=== PATIENT | female | born 1970 | race Asian ===

== ENCOUNTER 2017-11-11 13:04 | Outpatient (CLI) | payer OTHER ==
--- NOTE | 2017-11-11 14:14 | ULT ---
ULTRASOUND RETROPERITONEUM COMPLETE: (RENAL) 11/11/2017 HISTORY: A 47-year-old female with urinary tract infection. FINDINGS: The right kidney measures 10.5 x 3.5 x 3.5 cm. The left kidney measures 10 x 5.5 x 5.5 cm. No hydronephrosis bilaterally. There is an approximately 1.2 x 0.5 cm hyperechoic structure without definite shadowing at the lower pole of the left kidney. This is probably a calculus. Prior to voiding, the urinary bladder volume is 95 mL. Post void residua is 15 mL. The bladder adamson are diffusely mildly, heterogeneously thickened and irregular. IMPRESSION: 1. Incomplete micturition. 2. Abnormal appearance of bladder adamson, suggestive of cystitis, either acute or chronic. 3. Probable left renal lower pole calculus. Confirmation with noncontrast CT should be considered. 4. No hydronephrosis. AALIYAH Hernandez POS: LUIZ
== END 2017-11-11 13:05 | disposition home or self-care (01) ==
LOC: SCSULT 13:04
PROVIDERS: ATTEND Urology
DX: R35.0 Frequency of micturition (principal); R33.9 Retention of urine, unspecified; R93.41 Abnormal radiologic findings on diagnostic imaging of renal pelvis, ureter, or bladder
CPT/HCPCS: 76770

== ENCOUNTER 2018-01-06 15:50 | Outpatient (CLI) | payer OTHER ==
[2018-01-06 16:55] LABS: Hemoglobin 14.1 g/dL (12.0-16.0); Mean Corpuscular HGB CONC 32.3 g/dL (32.0-36.0); Mean Corpuscular Hemoglobin 29.2 pg (27.0-31.0); Mean Corpuscular Volume 90.4 fL (78.0-98.0); Mean Platelet Volume 7.6 fL (7.4-10.4); Platelet Count 263 thou/uL (130-400); Red Blood Cell (RBC) Count 4.84 mill/uL (4.20-5.40); White Blood Cell (WBC) Count 7.1 thou/uL (4.8-10.8)
[2018-01-06 16:58] LABS: BHCG - Serum Negative (NEGATIVE); Pregs Control Background? CLEAR/WHITE (CLR/WHITE); Pregs Control Bar Appear? YES (CONTROL BAR)
[2018-01-06 17:12] LABS: Anion Gap 9 mmol/L (10-20); BUN (Urea Nitrogen) 8 mg/dL (7.0-18.7); Calc. Creatinine Clearance 0 mL/min (70-130); Carbon Dioxide 28 mmol/L (22-29); Chloride 102 mmol/L (98-107); Estimated GFR-MDRD 81; Glucose 202 mg/dL (70-105); Potassium 3.5 mmol/L (3.5-5.1); Sodium 135 mmol/L (136-145)
[2018-01-06 17:42] LABS: Bilirubin Negative (Negative); Blood, Urine Negative (Negative); Clarity CLEAR (Clear); Glucose, Urine (Dipstick) Negative (Negative); Leukocyte Small (Negative); Nitrite Negative (Negative); Protein, Urine (Dipstick) Negative (Neg-Trace); Specific Gravity, Urine 1.006 (1.002-1.036); Urobilinogen 0.2 mg/dL (0.2-1.0)
[2018-01-06 17:48] LABS: Bacteria/HPF Rare-Few HPF (None Seen); Hyaline Casts/LPF 0-3 HYALINE CAST LPF (0-3 Hyaline); Pathc Cast-AUWi Flag 0.14 (0-2.49); RBC/HPF 0-3 HPF (0-3); Squamous Epithelial 0-3 HPF (0-3)
--- NOTE | 2018-01-07 10:21 | EKG ---
Test Reason : Blood Pressure : / mmHG Vent. Rate : 065 BPM Atrial Rate : 065 BPM P-R Int : 124 ms QRS Dur : 082 ms QT Int : 398 ms P-R-T Axes : 070 084 020 degrees QTc Int : 413 ms Normal sinus rhythm Normal ECG No previous ECGs available Confirmed by ELLI ESPINOSA ([id number]) on 01/07/2018 10:21:01 AM Referred By: SANYA Confirmed By:ELLI ESPINOSA
== END 2018-01-06 15:51 | disposition home or self-care (01) ==
LOC: LABBT 15:50
PROVIDERS: ATTEND Urology
DX: Z01.818 Encounter for other preprocedural examination (principal); N20.0 Calculus of kidney; N39.0 Urinary tract infection, site not specified; R35.0 Frequency of micturition
CPT/HCPCS: 80048; 81001; 84703; 85027; 85610; 85730; 87086; 93005; 93010

== ENCOUNTER 2018-01-15 10:18 | Day surgery (SDC) | payer OTHER ==
[2018-01-06 16:01] VITALS: BMI 22.4
[2018-01-15] MEDS ORDERED: Levofloxacin 500 mg/D5W 100 ml Premix Bag ONE (10:49)
[2018-01-15] MEDS ORDERED: Fentanyl 100 MCG/2 ML VIAL ONE ×2 (12:29)
--- NOTE | 2018-01-15 14:19 | OP ---
DATE OF PROCEDURE: 01/15/2018 SERVICE: Urology. SURGEON: Manny Klein M.D. PREOPERATIVE DIAGNOSIS: Left renal stone. POSTOPERATIVE DIAGNOSIS: Left renal stone and infundibular stenosis. PROCEDURE PERFORMED: 1. Left ureteroscopy, laser lithotripsy, basket extraction of stone. 2. Placement of 6 x 24 double-J stent and infundibular dilation of intrarenal stricture. INDICATIONS FOR PROCEDURE: Ms. Sr is a 47-year-old female who initially presented to me fo r recurrent UTIs. As part of her workup, she underwent a CT which demonstrated a 5 mm lower pole lef t renal stone. I told her it was a low probability this was causing her recurrent UTIs but it was po ssible. She wants to have the stone removed and after discussion of all options, including risks and benefits of surgery she has agreed to proceed forward. DESCRIPTION OF PROCEDURE: After identification of armband and verification of consent, the patient w as brought back to the operating room where she underwent general anesthesia with LMA. She was then placed in dorsal lithotomy position with all pressure points padded and prepped and draped in usual s terile fashion. After appropriate timeout, a lubricated 22 [place]ian rigid cystoscope was introduced pe r urethra into the bladder and attention turned left ureteral orifice which was cannulated with a 0.0 35 sensor wire up to the level of the renal pelvis. The cystoscope was then removed and a dual-lumen catheter was advanced over the sensor wire up to the level of the proximal ureter. An Amplatz Super Stiff wire was then placed through the second lumen the level of the renal pelvis. The dual-lumen w as then removed and the sensor wire affixed to the drapes as a safety wire. An 11/13 x 36 cm uretera l access sheath was advanced over the Amplatz Super Stiff wire with ease up to the proximal ureter. The inner cannula and the Super Stiff wire were then removed and the outer sheath and the sensor wire in place as a safety wire. A flexible digital ureteroscope was then passed through the ureteral acc ess sheath into the proximal ureter and into the kidney. A full pyeloscopy was performed which did n ot demonstrate any stones. I went back to the CT scan and reviewed it which did show the stone in th e lower pole. We did find a very small opening in the lower pole with what appeared to be a stone be hind it. The opening was far too small to be able to pass the ureteroscope or a laser fiber through. Attempts to try and basket through the hole was not possible. 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 As such, the passport balloon dilator was brought in throu gh the ureteroscope and positioned through the stenotic infundibulum. The passport balloon dilator w as then inflated up to 12 Estonian with a 2 cm length up to 8 cm atmosphere. After the dilation the pa ssport was removed and the ureteroscope brought back in and we looked at the infundibulum which was m ore open and the stone could be more clearly visible. Using a 200 micron laser fiber some more of th e infundibulum was opened using the tissue setting on the laser fiber until the ureteroscope could be passed almost all the way inside the obstructed maura. The stone was fully visible and using the fi kenna on deck settings, the stone was broken up and pulverized into basically extremely small particula te, these blew away very quickly as the stone pulverized and there were no pieces large enough to bas ket for specimen. Attempts to irrigate the specimen out was successful, but the pieces were so small , they could not even be identified afterwards. As such, we felt that the stone was gone. There was no specimen so a remainder of pyeloscopy was performed, no other additional stones were found and pu llback ureteroscopy done and no stones found in the ureter. The ureteral access sheath and the urete roscope were then removed and the cystoscope was backloaded over the sensor wire back into the [facility] r. A 6 x 24 double-J stent with string attached was advanced over the sensor wire up to level of the renal pelvis. The wire was then removed leaving a partial curl in the renal pelvis and good curl in the kidney. The bladder was emptied and the cystoscope removed. The string was then affixed to the patient's right inner thigh using an Op-Site. She was then taken out of lithotomy, awakened and trever en to PACU for recovery in stable condition. COMPLICATIONS: None. ESTIMATED BLOOD LOSS: Minimal. RETAINED TUBES AND DRAINS: A 6 x 24 double-J stent on the left. SPECIMENS: None. DISPOSITION: The patient will be discharged home and follow up with me in approximately 1 week for a postop check. She will be instructed to remove her stent on Friday.
[2018-01-15] MEDS ORDERED: Promethazine HCl 25 MG/ML VIAL ONE (15:08)
[2018-01-15] MEDS ORDERED: Sodium Chloride 0.9% 10 ML ONE (15:09)
[2018-01-15] MEDS ORDERED: hydrALAZINE 20 MG/ML VIAL ONE (15:47)
== END 2018-01-15 16:53 | disposition home or self-care (01) ==
LOC: SDC 10:18
PROVIDERS: ATTEND Urology
PROC: 0T748ZZ Dilation of Left Kidney Pelvis, Via Natural or Artificial Opening Endoscopic (ICD-10-PCS; principal; 2018-01-15)
PROC: 0TF48ZZ Fragmentation in Left Kidney Pelvis, Via Natural or Artificial Opening Endoscopic (ICD-10-PCS; principal; 2018-01-15)
PROC: 0T778DZ Dilation of Left Ureter with Intraluminal Device, Via Natural or Artificial Opening Endoscopic (ICD-10-PCS; principal; 2018-01-15)
DX: N20.0 Calculus of kidney (principal); N28.89 Other specified disorders of kidney and ureter; R35.0 Frequency of micturition; Z87.440 Personal history of urinary (tract) infections; Z79.899 Other long term (current) drug therapy
CPT/HCPCS: 76000; 96374; 96375; C1758; C1769; J0360; J1956; J2550; J3010